=== PATIENT | male | born 2005 | race Caucasian/White ===

== ENCOUNTER 2024-01-07 22:21 | Emergency (ER) | payer SELFPAY ==
[2024-01-07 22:25] VITALS: BP 135/78; PULSE 105; RESP 20; TEMP 36.1; O2SAT 100
--- NOTE | 2024-01-07 22:36 | RAD_ITS ---
EXAM: XR RIGHT WRIST, 2 VIEWS CLINICAL INDICATION: trauma/injury TECHNIQUE: Frontal and lateral views of the right wrist. COMPARISON: 01/05/2024 at 11:39 PM. FINDINGS: BONES/JOINTS: Radial styloid fracture with complete anterior dislocation of the wrist. Nondisplaced intra-articular fracture base of the first metacarpal. No sclerotic or destructive changes observed. SOFT TISSUES: Soft tissue swelling around the wrist. No radiopaque foreign body. RAD/Wrist 2 Views IMPRESSION: 1. Radial styloid fracture with complete anterior dislocation of the wrist. 2. Soft tissue swelling around the wrist. 3. Nondisplaced intra-articular fracture base of the first metacarpal. Electronically Signed: Efrem Mock MD at 0:06 EDT ,
--- NOTE | 2024-01-07 22:36 | CT_ITS ---
STUDY: CT BRAIN WITHOUT CONTRAST REASON FOR EXAM: Male, 18 years old. Trauma, amnesia, MCA RADIATION DOSAGE (If Supplied By Facility): CTDIvol = ( 44.99 ) mGy, DLP = ( 829.85 ) mGycm TECHNIQUE: Transaxial CT imaging of the brain was performed without administration of intravenous contrast material. Individualized dose optimization techniques were used for this CT. COMPARISON: No relevant priors. FINDINGS: Normal soft tissue structures. Normal calvarium. Normal size ventricles and extra-axial spaces for the patient''s age. Normal white matter tracts of the cerebral hemispheres. Normal basal ganglia and thalami. Normal brainstem. Normal cerebellum. There is no intracranial hemorrhage. There are no findings of an acute ischemic infarction. Normal visualized paranasal sinuses. CT/Brain/Head without Contrast IMPRESSION: Normal unenhanced CT scan of the brain. Electronically Signed: Izaiah Baig MD at 23:48 EDT ,
--- NOTE | 2024-01-07 22:36 | CT_ITS ---
STUDY: CT CHEST, ABDOMEN T PELVIS WITH CONTRAST REASON FOR EXAM: Male, 18 years old. MCA/trauma RADIATION DOSAGE (If Supplied By Facility): CTDIvol = ( 21.22 ) mGy, DLP = ( 1815.26 ) mGycm TECHNIQUE: Transaxial imaging was performed following intravenous administration of IV 100mL [id number]. Multiplanar coronal and sagittal images were reformatted. Individualized dose optimization techniques were used for this CT. COMPARISON: No relevant priors. FINDINGS: CHEST There are mild interstitial increased opacities in the right lower lobe. There is no demonstrated pleural abnormality. Normal heart and pericardium. Normal mediastinum. Normal hilar regions. Normal unenhanced pulmonary arteries. Normal aorta arch and descending thoracic aorta. Normal osseous structures. There is no demonstrated abnormality of the visualized upper abdomen. ABDOMEN The visualized lung bases are unremarkable. The visualized portions of the heart are within normal limits. Normal liver. Normal gallbladder and extrahepatic biliary system. Normal spleen. Normal pancreas. Normal bilateral adrenal glands. Normal right kidney. Normal left kidney. Normal visualized stomach. Normal small intestine. Normal colon. There is non-visualization of the appendix. Normal abdominal aorta. Normal inferior vena cava. Normal retroperitoneum. Normal abdominal wall. There are Schmorl''s nodes at lower thoracic and lumbar vertebra. PELVIS Normal urinary bladder. Normal visualized small intestine. Normal visualized colon. There is no pelvic fluid. There is no pelvic lymphadenopathy or mass lesion. Normal visualized pelvic arteries. Normal abdominal wall. Normal osseous structures. CT/CT Chest, Abd, Pel w/Contrast IMPRESSION: Mild interstitial prominence with possible small contusion of the right lung. No fracture. No solid organ injury. Electronically Signed: Izaiah Baig MD at 23:56 EDT ,
--- NOTE | 2024-01-07 22:36 | CT_ITS ---
STUDY: CT CERVICAL SPINE WITHOUT CONTRAST REASON FOR EXAM: Male, 18 years old. Trauma/distracting injury RADIATION DOSAGE (If Supplied By Facility): CTDIvol = ( 23.27 ) mGy, DLP = ( 483.86 ) mGycm TECHNIQUE: High resolution transaxial imaging was performed without contrast material. Sagittal and coronal images were reconstructed. Individualized dose optimization techniques were used for this CT. COMPARISON: None FINDINGS: Normal craniovertebral junction. Normal anterior atlantoaxial articulation. Normal odontoid process. There is straightening of the normal cervical lordosis. There is no fracture. Normal vertebral bodies and posterior osseous elements. C2-3: Normal endplates. Normal disc height and morphology. Normal central canal and intervertebral neuroforamina. C3-4: Normal endplates. Normal disc height and morphology. Normal central canal and intervertebral neuroforamina. C4-5: Normal endplates. Normal disc height and morphology. Normal central canal and intervertebral neuroforamina. C5-6: Normal endplates. Normal disc height and morphology. Normal central canal and intervertebral neuroforamina. C6-7: Normal endplates. Normal disc height and morphology. Normal central canal and intervertebral neuroforamina. C7-T1: Normal endplates. Normal disc height and morphology. Normal central canal and intervertebral neuroforamina. Normal visualized soft tissue structures. CT/Spine Cervical without Contras IMPRESSION: No fracture. Disc spaces are well preserved. Straightening of the cervical lordosis. Electronically Signed: Izaiah Baig MD at 23:51 EDT ,
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
[2024-01-07] MEDS: Diphth,Pertuss(Acell),Tet Vac 0.5 ML Vial IM (22:48)
[2024-01-07] MEDS: fentaNYL 100 MCG/2 ML Ampul 50 MCG IV (22:48)
[2024-01-07 22:49] LABS: Absolute Lymphocyte Count 1.39 X10^3/uL (0.83-4.51); Absolute Neutrophil Count 7.1 X10^3/uL (2.0-7.7); Basophil# 0.04 X10^3/uL; Basophil% 0.4 % (0-1); Eosinophil# 0.11 X10^3/uL; Eosinophils% 1.2 % (0-5); Hematocrit 42.8 % (40-54); Hemoglobin 14.8 g/dL (13.0-16.5); Lymphocyte # 1.39 X10^3/ul (0.83-4.51); Mean Corp Hgb Conc 34.6 g/dL (32-36); Mean Corpuscular Hgb 30.1 pg (27.0-32.0); Mean Platelet Vol. 10.2 fl (6.2-12.0); Monocyte# 0.65 X10^3/uL; NRBC Flagged by Analyzer 0 % (0-5); Neutrophil # 7.07 X10^3/uL (2.7-7.7); Neutrophil % 76.1 % (47-70); Platelet Count 203 K/mm3 (150-450); RBC Distribution Width CV 11.8 % (11.6-14.6); RBC Distribution Width SD 37.2 fl (35.1-43.9); Red Blood Count 4.92 M/mm3 (4.6-6.2); White Blood Count 9.3 K/mm3 (4.4-11.0)
[2024-01-07] MEDS: 0.9% Normal Saline (1000mL) 1,000 ML 999 ML IV (22:50)
[2024-01-07 22:51] VITALS: BMI 27.8
[2024-01-07 23:00] LABS: Anion Gap 9 (5-15); BUN 15 mg/dL (7-18); BUN/Creat Ratio 12.6 RATIO (10-20); Calcium,Total 9.2 mg/dL (8.5-10.1); Chloride 106 mmol/L (98-107); Creatinine, Serum 1.19 mg/dL (0.70-1.30); EST Glomerular Filtration Rate 83 mL/min (>60); Est Glom Filt Rate - Afr Amer 101 mL/min (>60); Glucose 110 mg/dL (74-106); Potassium 3.3 mmol/L (3.5-5.1); Sodium Level 139 mmol/L (136-145)
[2024-01-07 23:21] VITALS: BP 129/70; PULSE 61; RESP 16; O2SAT 100
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
[2024-01-08] VITALS (13 sets, daily range): BP systolic 126–147; BP diastolic 61–91; PULSE 64–78; RESP 15–17; TEMP 36.3–36.4; O2SAT 98–100
[2024-01-08 00:35] LABS: Bacteria 0 SEEN /hpf (None Seen); Mucous, Urine 0 SEEN /hpf (<or=2+); White Blood Cells 0 SEEN /hpf (0-5)
[2024-01-08 00:37] LABS: Glucose, Dipstick Normal (Normal); Ketone-Dipstick 5 mg/dl (Negative); Leukocyte Esterase-Dipstick Negative /ul (Negative); Nitrite-Dipstick Negative (Negative); Occult Blood-Urine 250 /ul (Negative); Protein-Dipstick 100 mg/dl (Negative); Urine Bilirubin Dipstick Negative (Negative); Urine Urobilinogen Normal (Normal)
[2024-01-08 00:43] LABS: Color, Urine Yellow (Yellow); Urine Clarity Clear (Clear)
[2024-01-08 00:44] LABS: Red Blood Cells-Urine 10-25 SEEN /hpf (0-5); Squamous Epithelial Cells - UA 0-5 SEEN /hpf (0-5)
[2024-01-08] MEDS: Propofol 200 MG/20 ML Vial IV BOLUS (01:05)
--- NOTE | 2024-01-08 01:13 | RAD_ITS ---
EXAM: XR RIGHT WRIST, 2 VIEWS CLINICAL INDICATION: POST REDUCTION TECHNIQUE: Frontal and lateral views of the right wrist. COMPARISON: 01/08/2024 at 1:17 AM. FINDINGS: BONES/JOINTS: Good alignment of the wrist and radial styloid fracture post reduction. First metacarpal fracture not well visualized on this study. Preservation of the joint space. No sclerotic or destructive changes observed. SOFT TISSUES: Unremarkable. No soft tissue swelling or gas. No radiopaque foreign body. RAD/Wrist 2 Views IMPRESSION: 1. Good alignment of the wrist and radial styloid fracture post reduction. 2. First metacarpal fracture not well visualized on this study. Electronically Signed: Efrem Mock MD at 2:38 EDT ,
--- NOTE | 2024-01-08 01:20 | RAD_ITS ---
EXAM: XR LEFT WRIST, 2 VIEWS CLINICAL INDICATION: POST REDUCTION TECHNIQUE: Frontal and lateral views of the left wrist. COMPARISON: No relevant prior studies available. FINDINGS: BONES/JOINTS: Persistent lateral dislocation of the wrist post reduction with ulnar styloid fracture. Nondisplaced intra-articular fracture base of the first carpal. No sclerotic or destructive changes observed. SOFT TISSUES: Unremarkable. No soft tissue swelling or gas. No radiopaque foreign body. OTHER FINDINGS: Fiberglas cast obscures detail. RAD/Wrist 2 Views IMPRESSION: 1. Persistent lateral dislocation of the wrist post reduction with ulnar styloid fracture. 2. Nondisplaced intra-articular fracture base of the first carpal. Electronically Signed: Efrem Mock MD at 2:16 EDT ,
--- NOTE | 2024-01-08 01:50 | RAD_ITS ---
EXAM: XR RIGHT HAND COMPLETE, 3 OR MORE VIEWS CLINICAL INDICATION: trauma TECHNIQUE: Frontal, lateral and oblique views of the right hand. COMPARISON: No relevant prior studies available. FINDINGS: BONES/JOINTS: Severely comminuted dislocated intra-articular fracture of the proximal aspect of the middle phalanx of the fifth finger. Comminuted intra-articular radial styloid fracture right wrist with good alignment post reduction. No sclerotic or destructive changes observed. SOFT TISSUES: Soft tissue swelling of the fifth finger. No radiopaque foreign body. RAD/Hand Min 3 Views IMPRESSION: 1. Severely comminuted dislocated intra-articular fracture of the proximal aspect of the middle phalanx of the fifth finger. 2. Soft tissue swelling of the fifth finger. Electronically Signed: Efrem Mock MD at 2:57 EDT ,
--- NOTE | 2024-01-08 01:58 | RAD_ITS ---
[employer] Unformatted Report Format: Options: n 2i act cap dr fernanda martinez wcta sl lj Gender: Male Age: 18 years Exam: XR Wrist 2 Views LEFT Comparison: History: post reduction Radiation: CTDIvol = mGy, DLP = mGy-cm Contrast: Normal alignment of the wrist joint. Impression. Mildly displaced radial styloid fracture. Impression. Nondisplaced fracture of the proximal first metacarpal. Impression. Fiberglas splint obscures detail. Soft tissue swelling about the wrist. Electronically Signed: Efrem Mock MD at 2:58 EDT , RAD/Wrist 2 Views IMPRESSION: undefined
--- NOTE | 2024-01-08 02:30 | RAD_ITS ---
EXAM: XR RIGHT FINGERS, 2 OR MORE VIEWS CLINICAL INDICATION: postreduction -- small TECHNIQUE: Frontal, lateral and oblique views of the fingers of the right hand. COMPARISON: No relevant prior studies available. FINDINGS: BONES/JOINTS: Markedly comminuted intra-articular fracture base of the middle phalanx of the fifth finger with significant displacement similar to the prior exam. Preservation of the joint space. No sclerotic or destructive changes observed. SOFT TISSUES: Soft tissue swelling of the fifth finger. No radiopaque foreign body. RAD/Finger(s) Min 2 Views IMPRESSION: 1. Markedly comminuted intra-articular fracture base of the middle phalanx of the fifth finger with significant displacement similar to the prior exam. 2. Soft tissue swelling of the fifth finger. Electronically Signed: Efrem Mock MD at 3:06 EDT ,
== END 2024-01-08 03:13 | disposition home or self-care (01) ==
PROVIDERS: Emergency Provider Emergency Medicine; Visit Provider Emergency Medicine
DX: S06.0XAA Concussion with loss of consciousness status unknown, initial encounter (principal); S52.511A Displaced fracture of right radial styloid process, initial encounter for closed fracture; S52.512A Displaced fracture of left radial styloid process, initial encounter for closed fracture; S62.235A Other nondisplaced fracture of base of first metacarpal bone, left hand, initial encounter for closed fracture; S63.025A Dislocation of radiocarpal joint of left wrist, initial encounter; S62.616A Displaced fracture of proximal phalanx of right little finger, initial encounter for closed fracture; S30.811A Abrasion of abdominal wall, initial encounter; S40.212A Abrasion of left shoulder, initial encounter; V29.99XA Rider (driver) (passenger) of other motorcycle injured in unspecified traffic accident, initial encounter; Y93.55 Activity, bike riding; F17.290 Nicotine dependence, other tobacco product, uncomplicated; Z23 Encounter for immunization
CPT/HCPCS: 25680; 26605; 70450; 71260; 72125; 73100; 73110; 73130; 73140; 74177; 80048; 81001; 85025; 90715; 96360; 96361; 99284; J7030; Q9967; A4216